=== PATIENT | female | born 1940 | race Caucasian/White ===

== ENCOUNTER → 2017-10-29 | Outpatient (CLI) | payer MEDICARE, OTHER ==
[~2017-10-29] MED LIST: ADV100/50 INH; AMLO-1 PO; ASPI-715 PO; CET10 PO; CICL6.6S19 TP; ESTR0.5T18 PO; FLUT16SP19 NS; GLUC-304 PO; HYDR-2966 PO; LEVO50TA86 PO; MON10 PO; MULT1CAP59 PO; NAP250 PO; OMEG500C7 PO; ONDA4TAB PO; PROL80 PO
== END ==
LOC: LAB 12:27
PROVIDERS: ATTEND Nurse Practitioner Family
DX: I10 Essential (primary) hypertension (principal); E03.9 Hypothyroidism, unspecified
CPT/HCPCS: 36415; 82040; 82247; 82310; 82374; 82435; 82565; 82947; 84075; 84132; 84155; 84295; 84443; 84450; 84460; 84520

== ENCOUNTER → 2018-09-22 | Outpatient (CLI) | payer MEDICARE, OTHER ==
--- NOTE | 2018-09-22 13:16 | RADIOLOGY IMAGING REPORT ---
FACILITY: [facility] - [place] PATIENT NAME: Nicolette Ruiz : 1940 MR: [id number] V: [id number] EXAM DATE: ORDERING PHYSICIAN: REYMUNDO BARRAZA TECHNOLOGIST: Location: [facility] [place] Patient: Nicolette Ruiz : 1940 Visit/Account:[id number] Date of Sevice: 09/22/2018 Exam type: RIBS RIGHT History: Trauma Comparison: Two view chest performed today. Findings: Two views of the right ribs were submitted There is no radiographic evidence of acute right rib fracture. This mild elevation right hemidiaphra gm.. There is no evidence of a pneumothorax or right pleural effusion. Incompletely imaged are post surgical changes the lumbar spine IMPRESSION: 1. No radiographic evidence of acute right rib fracture however if this remains of strong clinical c oncern a follow-up right rib series in several weeks may be helpful to exclude the possibility of an occult injury Report Dictated By: Delaney Seals MD at 09/22/2018 1:08 PM Report E-Signed By: Delaney Seals MD at 09/22/2018 1:12 PM WSN:[email or web address]
--- NOTE | 2018-09-22 13:17 | RADIOLOGY IMAGING REPORT ---
FACILITY: [facility] - [place] PATIENT NAME: Nicolette Ruiz : 1940 MR: [id number] V: [id number] EXAM DATE: ORDERING PHYSICIAN: REYMUNDO BARRAZA TECHNOLOGIST: Location: [facility] - [place] Patient: Nicolette Ruiz : 1940 Visit/Account:[id number] Date of Sevice: 09/22/2018 Exam type: CHEST PA AND LAT History: Right rib injury Comparison: Right rib series performed today. Findings: The lungs are free of acute effusions, infiltrates or edema. There is no evidence of a pneumothorax or pneumomediastinum. There is mild elevation right hemidiaphragm. Cardiac silhouette is mildly enl arged. There are spondylotic changes of the thoracic spine and incompletely imaged are postsurgical changes of the lumbar spine IMPRESSION: 1. Mild elevation right hemidiaphragm uncertain chronicity Mild cardiomegaly Report Dictated By: Delaney Seals MD at 09/22/2018 1:12 PM Report E-Signed By: Delaney Seals MD at 09/22/2018 1:13 PM WSN:[email or web address]
--- NOTE | 2018-09-22 13:19 | RADIOLOGY IMAGING REPORT ---
FACILITY: [facility] - [place] PATIENT NAME: Nicolette Ruiz : 1940 MR: [id number] V: [id number] EXAM DATE: ORDERING PHYSICIAN: REYMUNDO BARRAZA TECHNOLOGIST: Location: [facility] - [place] Patient: Nicolette Ruiz : 1940 Visit/Account:[id number] Date of Sevice: 09/22/2018 Exam type: KNEE 3 VIEW LEFT History: Left knee injury Comparison: None. Findings: Three views the left knee demonstrates mild to moderate narrowing of both the medial lateral compartm ents and patellofemoral compartment. There is no evidence of acute fracture or dislocation IMPRESSION: 1. 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
== END ==
LOC: RAD 12:03
PROVIDERS: ATTEND Nurse Practitioner Family
DX: M17.12 Unilateral primary osteoarthritis, left knee (principal); M25.562 Pain in left knee; R07.82 Intercostal pain
CPT/HCPCS: 71046; 71100

== ENCOUNTER → 2019-03-02 | Outpatient (CLI) | payer MEDICARE, OTHER | LOC: LAB 13:56 | PROVIDERS: ATTEND Nurse Practitioner Family | DX: E03.9 Hypothyroidism, unspecified (principal); I10 Essential (primary) hypertension | CPT/HCPCS: 36415; 82040; 82247; 82306; 82310; 82374; 82435; 82565; 82947; 83036; 84075; 84132; 84155; 84295; 84443; 84450; 84460; 84520 ==

== ENCOUNTER → 2019-03-10 | Outpatient (CLI) | payer MEDICARE, OTHER | LOC: LAB 13:33 | PROVIDERS: ATTEND Nurse Practitioner Family | DX: R19.7 Diarrhea, unspecified (principal) | CPT/HCPCS: 87045; 87177 ==

== ENCOUNTER → 2019-04-22 | Outpatient (CLI) | payer MEDICARE, OTHER ==
[2019-04-22 16:09] LABS: PLATELET COUNT, AUTOMATED 352 K/uL (150-450)
--- NOTE | 2019-04-22 16:17 | RADIOLOGY IMAGING REPORT ---
FACILITY: [facility] PATIENT NAME: Nicolette Ruiz : 1940 MR: [id number] V: [id number] EXAM DATE: ORDERING PHYSICIAN: NILESH DOW TECHNOLOGIST: Location: [facility] Patient: Nicolette Ruiz : 1940 Visit/Account:[id number] Date of Sevice: 04/22/2019 CHEST SINGLE AP INDICATION: Shortness of breath COMPARISON: 09/22/2018 FINDINGS: There is stable enlargement of the cardiac silhouette. There is no focal infiltrate or lobar consolidation. There is no pneumothorax or pleural effusion. IMPRESSION: 1. No acute cardiopulmonary process. Report Dictated By: Mike Rodrigues at 04/22/2019 4:10 PM Report E-Signed By: Mike Rodrigues at 04/22/2019 4:11 PM WSN:[email or web address]
== END ==
LOC: LAB 15:36
PROVIDERS: ATTEND Nurse Practitioner Family
DX: R06.02 Shortness of breath (principal); I10 Essential (primary) hypertension; R60.9 Edema, unspecified; R53.83 Other fatigue; E03.9 Hypothyroidism, unspecified
CPT/HCPCS: 36415; 71045; 82040; 82247; 82310; 82374; 82435; 82565; 82947; 83880; 84075; 84132; 84155; 84295; 84443; 84450; 84460; 84520; 85025

== ENCOUNTER → 2019-05-04 | Outpatient (CLI) | payer MEDICARE, OTHER ==
--- NOTE | 2019-05-04 19:08 | RADIOLOGY IMAGING REPORT ---
FACILITY: [facility] PATIENT NAME: Nicolette Ruiz : 1940 MR: [id number] V: [id number] EXAM DATE: ORDERING PHYSICIAN: NILESH DOW TECHNOLOGIST: Location: [facility] - [place] Patient: Nicolette Ruiz : 1940 Visit/Account:[id number] Date of Sevice: 05/04/2019 CT Head without contrast Indication: Right axilla headache. Patient on Eliquis. Comparison: 01/25/2011. Technique: Axial CT images were obtained through the brain from the skull base to the vertex without administration of IV contrast. Reformatted coronal and sagittal images were also obtained. One of the following dose optimization techniques was utilized in the performance of this exam: autom ated exposure control; adjustment of the mA and/or kV according to the patient's size; or use of an i terative reconstruction technique. Specific details can be referenced in the facility's radiology CT exam operational policy. Findings: No evidence of mass, mass effect, or midline shift. No acute intracranial hemorrhage or acute territorial infarction. No extra-axial fluid collection or hydrocephalus. No abnormal density. Baron/white matter differentiat ion appears normal. Bony structures show no fractures or lesions. Rightward deviation nasal septum. The visualized paranasal sinuses and mastoid air cells are clear. IMPRESSION: 1. No acute intracranial abnormality. Report Dictated By: Jacob Weems at 05/04/2019 6:58 PM Report E-Signed By: Jacob Weems at 05/04/2019 7:02 PM WSN:[email or web address]
== END ==
LOC: CT 16:48
PROVIDERS: ATTEND Nurse Practitioner Family
DX: R51 Headache (principal)
CPT/HCPCS: 70450